=== PATIENT | female | born 1985 | race Caucasian/White ===

== ENCOUNTER 2017-08-07 23:08 | Emergency (ER) | payer OTHER ==
[~2017-08-07] VITALS: Ht 157.5 cm; Wt 67.3 kg
[~2017-08-07 23:08] MED LIST: ATARAX,VISTARIL25 MG PO; ATIVAN0.5 MG PO; CAMILA0.35 MG PO; DICLEGIS DR 101 EACH PO; HYDROXYZINE HCL25 MG PO; IBUPROFEN800 MG PO; LORAZEPAM0.5 MG PO; PRENATAL TABLE1 EACH PO; SERTRALINE HCL50 MG PO; ZOLOFT25 MG PO
[2017-08-08 00:59] VITALS: BP 114/79
== END 2017-08-08 00:59 | disposition home or self-care (01) ==
LOC: EME 23:08
DX: S93.401A Sprain of unspecified ligament of right ankle, initial encounter (principal); S93.402A Sprain of unspecified ligament of left ankle, initial encounter; X50.9XXA Other and unspecified overexertion or strenuous movements or postures, initial encounter; Y93.01 Activity, walking, marching and hiking; Y92.008 Other place in unspecified non-institutional (private) residence as the place of occurrence of the external cause; F41.9 Anxiety disorder, unspecified; F32.9 Major depressive disorder, single episode, unspecified
CPT/HCPCS: 73610; 99281; 99284